=== PATIENT | female | born 1985 | race Caucasian/White ===

== ENCOUNTER 2017-03-06 11:37 | Emergency (ER) | payer MEDICAID ==
[~2017-03-06] VITALS: Ht 177.8 cm; Wt 174.4 kg
[~2017-03-06 11:37] MED LIST: ADVA100A INH; ADVAI250I PO; ALBU1AER INH
[2017-03-06 11:45] VITALS: BP 138/69; PULSE 93; RESP 16; TEMP 98.6; O2SAT 98
[2017-03-06] MEDS ORDERED: ADVA100A INH (12:39)
[2017-03-06] MEDS ORDERED: BACT800T5 PO (12:44)
[2017-03-06] MEDS ORDERED: TRAM50TA PO (12:44)
[2017-03-06] MEDS ORDERED: DIFL150T PO (12:44)
--- NOTE | 2017-03-06 12:56 | PD ---
HPI Chief Complaint: Skin Problem Time Seen by Provider: 12:29 Travel History International Travel<30 days: No Contact w/Intl Traveler<30days: No Traveled to known affect area: No History of Present Illness HPI The patient was seen and examined in the presence of the nurse. This patient complains of an infected cyst in her left labia. Duration 2 days. No drainage or fever. Symptoms severity is moderate. PFSH Past Medical History Asthma: Yes Respiratory: Yes (asthma) Tetanus Vaccination: > 5 Years Influenza Vaccination: No ?: Not LMP: NOW Past Surgical History Tonsillectomy: Yes Social History Alcohol Use: Yes Tobacco Use: Yes (1 PPD) Substance Use: No Allergies-Medications (Allergen,Severity, Reaction): Coded Allergies: Influenza Virus Vaccines (Unverified Allergy, Severe, Anaphylaxis, 03/06/17) Reported Meds & Prescriptions Reported Meds & Active Scripts Active Diflucan (Fluconazole) 150 Mg Tab 150 Mg PO ONCE Bactrim DS (Sulfamethoxazole-Trimethoprim) 800-160 Mg Tab 1 Tab PO BID Tramadol (Tramadol HCl) 50 Mg Tab 50 Mg PO Q6H PRN Reported Advair Diskus Inh (Fluticasone-Salmeterol Inh) 100-50 Mcg/Blist Aer 1 Puff INH BID Rinse mouth after use. Review of Systems General / Constitutional: No: Fever HENT: No: Headaches Cardiovascular: No: Chest Pain or Discomfort Physical Exam Narrative GASTROINTESTINAL: Abdomen soft, non-tender, nondistended. Positive bowel sounds. No hepato-splenomegaly, or palpable masses. No guarding. Psych: Normal mood and affect. Normal insight and judgment. : Patient has a 1 cm diameter indurated area on the lateral part of the left labia. There is no fluctuance or drainage. No surrounding erythema Data Data Last Documented VS Vital Signs Date Time Temp Pulse Resp B/P (MAP) Pulse Ox O2 Delivery O2 Flow Rate FiO2 03/06/17 11:45 98.6 93 16 138/69 (92) 98 MDM Medical Decision Making Medical Screen Exam Complete: Yes Emergency Medical Condition: Yes Medical Record Reviewed: Yes Differential Diagnosis Bartholin's cyst, boil, abscess Narrative Course I have reviewed the patient's electronic medical record. I prescribed 10 days of Bactrim DS. Patient requests a dose of Diflucan if she gets yeast infection with Bactrim and I have complied with that. I wrote her something to use for pain if needed. She should apply warm compresses. At this time this is not amenable to incision and drainage. There is nothing to culture. Diagnosis Primary Impression: Infected cyst of skin Additional Instructions: The patient was advised to follow up with their physician and return if they worsen. The patient was warned about potential sedation for the medications they will receive on prescription. Use warm compresses Med/Other Pt SpecificInfo: Prescription(s) given Scripts Fluconazole (Diflucan) 150 Mg Tab 150 MG PO ONCE for Infection, #1 TAB 0 Refills Prov: Donny Krause MD 03/06/17 Sulfamethoxazole-Trimethoprim (Bactrim DS) 800-160 Mg Tab 1 TAB PO BID for Infection, #20 TAB 0 Refills Prov: Donny Krause MD 03/06/17 Tramadol (Tramadol) 50 Mg Tab 50 MG PO Q6H Y for PAIN, #20 TAB 0 Refills Prov: Donny Krause MD 03/06/17 Disposition: 01 DISCHARGE HOME Condition: Stable Donny Krause MD Mar 06, 2017 12:56
== END 2017-03-06 13:03 | disposition home or self-care (01) ==
LOC: PHED 11:37
DX: N90.7 Vulvar cyst (principal); L08.9 Local infection of the skin and subcutaneous tissue, unspecified; F17.200 Nicotine dependence, unspecified, uncomplicated; Z87.09 Personal history of other diseases of the respiratory system
CPT/HCPCS: 99284